=== PATIENT | female | born 1995 | race Caucasian/White ===

== ENCOUNTER 2023-06-09 02:05 | Outpatient (CLI) | payer BC, SELFPAY | END 2023-06-09 02:06 | disposition home or self-care (01) | LOC: AMB 06-17 15:48 | PROVIDERS: Visit Provider Family Medicine | DX: O47.03 False labor before 37 completed weeks of gestation, third trimester (principal); Z3A.32 32 weeks gestation of pregnancy | CPT/HCPCS: A0425; A0426 ==